=== PATIENT | female | born 1985 ===

== ENCOUNTER → 2019-07-30 15:08 | Outpatient (CLI) | payer OTHER, SELFPAY ==
--- NOTE | ~2019-07-30 | XR_ITS ---
EXAMINATION: XR shoulder LT min 2V EXAM DATE: 07/30/2019 15:25 INDICATION: No known recent injury provided at this time. Pain of the left shoulder. TECHNIQUE: The following left shoulder projections obtained: frontal projection with internal rotatio n, frontal projection with external rotation, Grashey, and axillary (4+ views). There is no prior st udy for comparison. FINDINGS: No evidence of left shoulder rotator cuff calcific tendinosis. There is mild acromioclav icular joint primary osteoarthritis. There are no acute fractures or dislocations identified. There is no subcutaneous gas. The soft tissue is unremarkable. There are no radiopaque foreign bodies. IMPRESSION: Mild left acromioclavicular joint osteoarthritis. Reviewed, dictated and finalized at location A. SCOPIC ENGINEERING TECHNICIAN
--- NOTE | ~2019-07-30 | XR_ITS ---
EXAMINATION: XR shoulder RT min 2V EXAM DATE: 07/30/2019 15:26 INDICATION: No known recent injury provided at this time. Pain of the right shoulder. TECHNIQUE: The following right shoulder projections obtained: frontal projection with internal rotati on, frontal projection with external rotation, Grashey, and axillary (4+ views). There is no prior s tudy for comparison. FINDINGS: No evidence of right shoulder rotator cuff calcific tendinosis. There is mild acromiocla vicular joint primary osteoarthritis. There are no acute fractures or dislocations identified. There is no subcutaneous gas. The soft tissue is unremarkable. There are no radiopaque foreign bodies. IMPRESSION: Mild right acromioclavicular osteoarthritis. Reviewed, dictated and finalized at location A. AL HEALTH COUNSELOR
== END ==
PROVIDERS: PCP Family Medicine; Visit Provider Family Medicine
DX: M25.511 Pain in right shoulder (principal); M25.512 Pain in left shoulder; Z32.02 Encounter for pregnancy test, result negative
CPT/HCPCS: 73030